=== PATIENT | female | born 1955 | race Caucasian/White ===

== ENCOUNTER → 2020-07-31 | Outpatient (CLI) | payer OTHER ==
[~2020-07-31] MED LIST: ASPIR 8181 MG PO; CYMBALTA60 MG PO; LANSOPRAZOLE30 MG PO; LIPITOR TAB 2020 MG PO; METOPROLOL SUC100 MG PO; TRAZODONE HCL50 MG PO
== END ==
LOC: HEART 5 13:30
DX: R42 Dizziness and giddiness (principal); I95.1 Orthostatic hypotension; I10 Essential (primary) hypertension

== ENCOUNTER → 2020-08-03 | Outpatient (CLI) | payer OTHER | LOC: CATH 08-02 10:00 | DX: R55 Syncope and collapse (principal) ==

== ENCOUNTER → 2021-04-24 | Outpatient (CLI) | payer OTHER | LOC: CT 08:41 | DX: K57.32 Diverticulitis of large intestine without perforation or abscess without bleeding (principal); N30.20 Other chronic cystitis without hematuria | CPT/HCPCS: 36415; 82565; 84520; Q9967 ==